=== PATIENT | male | born 1995 | race Caucasian/White ===

== ENCOUNTER 2018-09-04 07:51 | Day surgery (SDC) | payer OTHER ==
[2018-08-28 09:44] LABS: ABSOLUTE EOSINOPHILS # (AUTO) 0.1 10^3/uL (0.0-0.6); ABSOLUTE LYMPHOCYTES (AUTO) 1.9 10^3/uL (0.5-4.7); ABSOLUTE MONOCYTES (AUTO) 0.4 10^3/uL (0.1-1.4); ABSOLUTE NEUT (AUTO) 3.1 10^3/uL (1.7-8.2); BASOPHILS % (AUTO) 0.6 % (0-2); EOSINOPHILS % (AUTO) 2.5 % (0-6); HEMATOCRIT 48.6 % (37.9-51.0); HEMOGLOBIN 16.5 g/dL (13.5-17.0); LYMPHOCYTES % (AUTO) 34.1 % (13-45); MEAN CORPUSCULAR HEMOGLOBIN 28.9 pg (27.0-33.4); MEAN CORPUSCULAR VOLUME 85 fl (80-97); MONOCYTES % (AUTO) 7.2 % (3-13); PLATELET COUNT 210 10^3/uL (150-450); RED BLOOD COUNT 5.72 10^6/uL (4.35-5.55); RED CELL DISTRIBUTION WIDTH 12.9 % (11.5-14.0); SEGMENTED NEUTROPHILS % (AUTO) 55.6 % (42-78); TOTAL CELLS COUNTED % (AUTO) 100 %; WHITE BLOOD COUNT 5.5 10^3/uL (4.0-10.5)
[2018-08-28 10:18] LABS: ANION GAP 10 (5-19); BLOOD UREA NITROGEN 16 mg/dL (7-20); CALCIUM 9.9 mg/dL (8.4-10.2); CARBON DIOXIDE 28 mmol/L (22-30); CHLORIDE 103 mmol/L (98-107); GLUCOSE 90 mg/dL (75-110); POTASSIUM 5.2 mmol/L (3.6-5.0); SODIUM 141.1 mmol/L (137-145)
[~2018-09-04 07:51] MED LIST: CLINDAMYCIN 600 MG/D5W RTU 600 MG/50 ML RTUPB IV PRN; LACTATED RINGERS 1000 ML IV PRN; LIDOCAINE 0.5% INJ-PF (5 MG/ML) 50 ML SDV SUBCUT PRN
[2018-09-04] MEDS ORDERED: CLINDAMYCIN 600 MG/D5W RTU 600 MG/50 ML RTUPB IV ONE (08:22)
[2018-09-04] MEDS ORDERED: FENTANYL CITRATE INJ/PF 100 MCG/2 ML AMPUL ONE ×3 (08:37→11:57)
[2018-09-04] MEDS ORDERED: LIDOCAINE 2% INJ-PF (100 MG/5 ML) SYRINGE ONE (08:37)
[2018-09-04] MEDS ORDERED: MIDAZOLAM 2 MG/2 ML INJ ONE (08:37)
[2018-09-04] MEDS ORDERED: ONDANSETRON HCL INJ/PF 4 MG/2 ML SDV ONE (08:38)
[2018-09-04] MEDS ORDERED: PROPOFOL INJ 200 MG/20 ML VIAL IV ONE (08:38)
[2018-09-04] MEDS ORDERED: BUPIVACAINE HCL 0.5 % INJ/PF 30 ML SDV ONE (08:46)
[2018-09-04] MEDS ORDERED: FENTANYL CITRATE INJ/PF 100 MCG/2 ML AMPUL IV PRN ×3 (09:09)
[2018-09-04] MEDS ORDERED: MEPERIDINE HCL/PF INJ 25 MG/1 ML DISP.SYRIN IV PRN (09:09)
--- NOTE | 2018-09-04 11:43 | Operative Report ---
Operative Report DATE OF SURGERY: 09/04/18 PREOPERATIVE DIAGNOSIS: Right wrist painful retained hardware. Right wrist TFCC tear POSTOPERATIVE DIAGNOSIS: Same plus adhesion third dorsal compartment, partial scapholunate ligament membranous tear OPERATION: 1. Right wrist arthroscopy with debridement central TFCC tear, membranous scapholunate ligament. 2. Removal of hardware right wrist. 3. Extensor tenolysis third dorsal compartment SURGEON: YOLA BERGERON ANESTHESIA: GA COMPLICATIONS: None ESTIMATED BLOOD LOSS: Minimal PROCEDURE: Indication for above procedure: 23-year-old male who sustained a comminuted intra-articular distal radius fracture. Postoperatively patient progressed appropriately and had return to regular activities although he then began complaining of pain along the hardware and ulnar aspect of the wrist. Given his original injury underlying TFCC pathology likely is contributing to his ulnar-sided symptoms and thus decision was made to proceed with diagnostic arthroscopy with concomitant hardware removal. Risks and benefits were explained patient verbalized understanding consented for surgical procedure. Procedure In Detail: Patient was seen and evaluated in the preoperative holding area. The upper extremity was initialized and marked. Patient received clindamycin IV for bacterial prophylaxis. Patient was taken back to the operative room where transferred to the operative table and placed under general anesthesia. Once they were adequately anesthetized a nonsterile tourniquet was placed on the upper extremity. A surgical team debriefing was performed ensuring all instrumentation was available, the surgical procedure was discussed with possible concerns reviewed. The upper extremity was prepped with chlorhexidine and alcohol and draped in a sterile fashion. A timeout was done identifying correct patient, procedure and extremity everyone in attendance agree with this and verbalized no concerns. The extremity was exsanguinated the tourniquet was inflated to 250 mmHg. Patient was placed in the [employer]umed wrist distractor with 15 pounds 3-4 portal was established and arthroscope introduced into the radiocarpal joint. Dry arthroscopy demonstrated no evidence of intra-articular step-off. There is mild fraying along the scapholunate ligament at its membranous portion. A 4-5 portal was established and the TFCC was probed there was partial fraying along the dorsal central edge with a full-radius resector the TFCC was debrided along with the membranous portion of the scapholunate ligament. This was then further smoothed with a small joint ablator. Otherwise some mild fraying along the lunate fossa but no full-thickness cartilage defects appreciated. Midcarpal arthroscopy was then performed. Midcarpal radial portal established and via triangulation a midcarpal ulnar portal established. There was no evidence of widening along the lunotriquetral interval. Mild widening of the scapholunate interval but no greater than the with double probe. The dorsal scapholunate ligament was identified and intact. There is no evidence of step- off along the scapholunate ligament. At this point proceed with hardware removal. Previous dorsal incision was utilized blunt dissection was performed. The superficial radial nerve was neurolysed and retracted with a full-thickness skin flap. The third dorsal compartment/EPL tendon was notably adhered to the underlying second dorsal compartment and thus tenolysis of the second dorsal compartment third dorsal compartment was performed. Elevating the fourth dorsal compartment and third dorsal compartments the underlying dorsal hook plate and pin plate were identified and successfully moved. The radial styloid plate was then exposed by releasing the dorsal third of the first dorsal compartment to obtain access. The EPB/APL were retracted to expose the plate. Pins were successfully removed along with the proximal screw unfortunately the second most proximal screw head broke and once the plate was removed the remaining screw was likely to cause irritation to the surrounding first dorsal compartment. Thus with the screw removal set the area was partially overdrilled for approximately 7 mm to expose adequate amount of screw to allow for complete removal. All screw holes were then debrided with a curette. Wound was copiously irrigated with normal saline. Because of the radial defect this area was filled with Vitoss synthetic graft. C-arm fluoroscopy was obtained confirming complete removal of the hardware. Maintained radial height, inclination and volar tilt. Subcutaneous tissue closed with interrupted 4-0 Monocryl suture. Skin was closed with interrupted horizontal mattress 4-0 nylon suture. 20 cc of 0.5% bupivacaine with out epinephrine was injected for postoperative pain control. Patient was placed in a volar resting splint. Sponge counts, instrument counts, needle counts were correct. Patient was then awoken from anesthesia. Transferred from the operating room table to the operating room stretcher. There was no intraoperative complications patient tolerated procedure well stable to PACU. Postop plan: Patient follow-up the office in 2 weeks for suture removal. We will begin range of motion exercises at that time.
[2018-09-04] MEDS ORDERED: ONDANSETRON HCL INJ/PF 4 MG/2 ML SDV IV PRN (11:44)
[2018-09-04] MEDS ORDERED: OXYCODONE-ACETAMINOPHEN 5-325 MG TABLET PO PRN (11:44)
[2018-09-04] MEDS ORDERED: MORPHINE SULFATE 10 MG/ML INJ IV PRN (11:44)
--- NOTE | 2018-09-04 11:44 | Discharge Summary ---
Discharge Summary (SDC) - Discharge Final Diagnosis: Painful hardware right wrist Date of Surgery: 09/04/18 Discharge Date: 09/04/18 Condition: Good Treatment or Instructions: Schedule Follow Up w/ Dr. Jim Velez @ [facility] to be seen in 10-14 days or as scheduled [place]: [place]: [place]: May remove splint/dressing on postop day #7, keep incision covered and dry. Ice and elevate May begin finger range of motion attempting to make full fist. Stool softener of choice when on pain medication. USE OF [id number] IBUPROFEN: Ibuprofen (Advil, Nuprin, Medipren, Motrin IB) is a medication for fever and pain control. In addition, it has anti- inflammatory effects which may be beneficial, especially in the treatment of injuries. It's best to take ibuprofen with food. Persons with ulcer disease or allergy to aspirin should notify their physician of this before taking ibuprofen. Ibuprofen can be given every four to six hours, for a total of four doses daily. Age Pain or fever dose Antiinflammatory dose 6-8 yr 200 mg (1 tab) 200 mg (1 tab) 9-11 yr 200 mg (1 tab) 200-400 mg (1-2 tab) 11-14 yr 200-400 mg (1-2 tab) 400 mg (2 tab) 15-adult 400 mg (2 tab) 600 mg (3 tab) ORAL NARCOTIC MEDICATION: You have been given a prescription for pain control. This medication is a narcotic. It's best taken with food, as nausea can result if taken on an empty stomach. Don't operate machinery or drive within six hours of taking this medication. Do not combine this medicine with alcohol, or with any medication which can cause sedation (such as cold tablets or sleeping pills) unless you get permission from the physician. Narcotics tend to cause constipation. If possible, drink plenty of fluids and eat a diet high in fiber and fruits. Please be aware that prescription narcotics also have the potential for abuse. People become addicted to these medications because of the general sense of wellbeing that they induce. This feeling along with a significant reduction in tension, anxiety, and aggression provides a stimulating seductive quality to these drugs. Once your pain is under control, we encourage you to discard your unused narcotics. Prescriptions: Ketorolac Tromethamine [Toradol 10 mg Tablet] 10 mg PO Q8HP PRN #12 tablet PRN Reason: Oxycodone HCl/Acetaminophen [Percocet 5-325 mg Tablet] 1 tab PO Q6 PRN #25 tab PRN Reason: Discharge Diet: As Tolerated Respiratory Treatments at Home: Deep Breathing/Coughing Discharge Activity: No Lifting Over 10 Pounds, No Lifting/Push/Pulling Report the Following to Your Physician Immediately: Fever over 101 Degrees, Unusual Bleeding, Redness, Swelling, Warmth, Increased Soreness
[2018-09-04] MEDS ORDERED: ACETAMINOPHEN 1,000 MG/100 ML RTUPB IV ONE (11:57)
[2018-09-04] MEDS ORDERED: KETOROLAC TROMETHAMINE INJ/PF 30 MG/1 ML SDV ONE (11:57)
[2018-09-04] MEDS ORDERED: OXYCODONE-ACETAMINOPHEN 5-325 MG TABLET ONE (12:51)
--- NOTE | 2018-09-04 13:42 | RADIOLOGY REPORT (SQ) ---
EXAM DESCRIPTION: NO CHG FLUORO; WRIST RIGHT 2 VIEWS COMPLETED DATE/TIME: 09/04/2018 1:27 pm REASON FOR STUDY: HARDWARE REMOVAL RT WRIST ASST W/ FLUORO IN OR COMPARISON: None. FLUOROSCOPY TIME: 2 insert scans To Images saved to PACS LIMITATIONS: None. PROCEDURE: Hardware removal. FINDINGS: Images from fluoro show the distal radius status post removal of hardware. IMPRESSION: Hardware removal. Refer to operative note for further information. COMMENT: PQRS 6045F: Fluoroscopy time of the procedure is documented in the report. TECHNICAL DOCUMENTATION: JOB ID: [id number] [employer]- All Rights Reserved Reading location - IP/workstation name: [email or web address]
--- NOTE | 2018-09-04 13:42 | RADIOLOGY REPORT (SQ) ---
EXAM DESCRIPTION: NO CHG FLUORO; WRIST RIGHT 2 VIEWS COMPLETED DATE/TIME: 09/04/2018 1:27 pm REASON FOR STUDY: HARDWARE REMOVAL RT WRIST ASST W/ FLUORO IN OR COMPARISON: None. FLUOROSCOPY TIME: 2 insert scans To Images saved to PACS LIMITATIONS: None. PROCEDURE: Hardware removal. FINDINGS: Images from fluoro show the distal radius status post removal of hardware. IMPRESSION: Hardware removal. Refer to operative note for further information. COMMENT: PQRS 6045F: Fluoroscopy time of the procedure is documented in the report. TECHNICAL DOCUMENTATION: JOB ID: [id number] [employer]- All Rights Reserved Reading location - IP/workstation name: [email or web address]
[2018-09-04 17:14] VITALS: BP 126/77
== END 2018-09-04 14:10 | disposition home or self-care (01) ==
LOC: OROUT 07:51
PROVIDERS: ATTEND Orthopaedic Surgery
DX: T84.418A Breakdown (mechanical) of other internal orthopedic devices, implants and grafts, initial encounter (principal); Y83.8 Other surgical procedures as the cause of abnormal reaction of the patient, or of later complication, without mention of misadventure at the time of the procedure; M25.839 Other specified joint disorders, unspecified wrist; M24.131 Other articular cartilage disorders, right wrist
CPT/HCPCS: 36415; 85025; 80048; 73100; 01830; 29846; 25295; 20680; J2250; J3490; J3010; J2001; J1885; J2405; J2704; J0131